=== PATIENT | female | born 1960 | race Caucasian/White ===

== ENCOUNTER → 2021-03-20 14:30 | Outpatient (BNVA) | payer OTHER, SELFPAY | PROVIDERS: Visit Provider Family Medicine Adult Medicine | DX: N39.0 Urinary tract infection, site not specified (principal) | CPT/HCPCS: 81000 ==

== ENCOUNTER → 2021-05-04 15:03 | Outpatient (BNVA) | payer OTHER, SELFPAY | PROVIDERS: Referring Provider Family Medicine Adult Medicine; Visit Provider Specialist | DX: M25.562 Pain in left knee (principal); S86.912A Strain of unspecified muscle(s) and tendon(s) at lower leg level, left leg, initial encounter; X58.XXXA Exposure to other specified factors, initial encounter; Z91.81 History of falling | CPT/HCPCS: 73560; 73565 ==

== ENCOUNTER 2021-08-26 13:37 | Outpatient (CLI) | payer OTHER, SELFPAY ==
--- NOTE | 2021-08-26 13:45 | MR_ITS ---
WS: [id number] MRI LEFT KNEE NONCONTRAST TECHNIQUE: Axial PD, coronal PD fat sat, coronal PD, sagittal PD, and sagittal PD fat-sat images obta ined. CLINICAL INFORMATION: PAIN/STRAIN OF UNSPECIFIED MUSCLES TENDONS COMPARISON: Radiograph May 04, 2021 FINDINGS: Distal quadriceps and patella tendons are intact. Moderate chondromalacia patella. Small amount of pr epatellar and infrapatellar soft tissue edema. Tiny joint effusion. Normal ACL and PCL. Chronic thinn ing of the medial and lateral meniscus. Chronic intrasubstance T2 signal abnormality involving the an terior horn lateral meniscus. No acute appearing meniscal tears. Grade III chondromalacia involving the medial joint compartment. No significant subchondral edema. Medial and lateral patellar retinaculum are intact. Normal popliteal fossa. Normal medial and lateral collateral ligaments. Small intra-articular osseous loose body along the inferior pole of the patella corresponding to the radiograph findings measuring 10 x 3.5 mm. This is located along the inferior margin the patella with in the patellofemoral joint. MR/MR knee LT wo con* [id number] IMPRESSION: 1. Normal ACL and PCL. 2. No acute appearing meniscal tears. Chronic intrasubstance signal abnormalit y involving the anterior horn lateral meniscus. 3. Grade III chondromalacia in the medial and lateral joint compartments worse involving the medial joint compartment. 4. Moderate chondromalacia patella. No subchondral edema. 5. Small intra-articular osseous loose body along the inferior pole of the pat mago corresponding to the radiograph findings measuring 10 x 3.5 mm. Outbridge grading:
== END 2021-08-26 13:38 | disposition home or self-care (01) ==
LOC: RAD 13:39
PROVIDERS: PCP Family Medicine Adult Medicine; Visit Provider Specialist
DX: M79.18 Myalgia, other site (principal); M22.42 Chondromalacia patellae, left knee
CPT/HCPCS: 73721

== ENCOUNTER 2021-12-04 05:38 | Day surgery (SDC) | payer OTHER, SELFPAY ==
[2021-12-03 12:31] VITALS: BMI 28.3
[2021-12-04] VITALS (15 sets, daily range): BP systolic 110–126; BP diastolic 68–82; PULSE 76–91; RESP 13–21; TEMP 36.3–36.9; O2SAT 97–100
[2021-12-04] MEDS: CELEcoxib 200 mg Capsule 400 MG PO (06:35)
[2021-12-04] MEDS: sodium chloride 0.9% 1,000 ML 30 ML IV (06:36)
[2021-12-04] MEDS: acetaminophen 1,000 MG/100 ML PIGGYBACK 400 MG IV (06:36)
--- NOTE | 2021-12-04 06:41 | ANES.PREANE2 ---
Pre-Anesthetic Assessment Height/Weight: Height 1.6 m Weight 72.575 kg Temp Pulse Resp BP Pulse Ox O2 Del Method 98.5 F 90 18 126/74 99 12/04/21 06:09 12/04/21 06:09 12/04/21 06:09 12/04/21 06:09 12/04/21 06:09 12/04/21 06:12 Preop Diagnosis: Loose body left knee, DJD Operation Date: 12/04/21 07:00 Proposed Procedures p LEFT KNEE SCOPE WITH DEBRIDEMENT 35355,M25.562(Left) - Katarzyna Chaidez MD Familial anesthetic complications: PONV Was Beta Kimberley taken within 24 hours: N/A Was Clonidine taken within 24 hours: N/A Last intake: Intake Last Liquid Date 12/03/21 Last Liquid Time 20:00 Last Solid Date 12/03/21 Last Solid Time 20:00 Social No alcohol and No tobacco Exam alert, oriented x 3, clear to auscultation bilaterally and regular rate & rhythm Airway Mallampati: Class II Dentition: full Pulmonary None reported CV/HEM None reported None reported Hepatic None reported GI Gastroesophageal Reflux Disease Metabolic None reported Musc/skel None reported Neuropsych None reported Anesthetic Plan ASA status: 2 Anesthesia: General Risk of > 500 ml blood loss (7ml/kg in children): No Medications/Allergies Home Medications Medication Instructions Recorded Confirmed Last Taken Type magnesium carbonate 500 mg PO DAILY 04/08/21 12/04/21 12/03/21 History omeprazole 20 mg delayed 20 mg PO DAILY 12/03/21 12/03/21 Unknown History release,disintegrating tablet potassium gluconate 550 mg (90 mg) 550 mg PO DAILY 12/03/21 12/04/21 12/03/21 History tablet Allergies Allergy/AdvReac Type Severity Reaction Status Date / Time No Known Allergies Allergy Verified 12/02/21 08:40 Current Medications Generic Name Dose Route Start Last Admin Trade Name Freq PRN Reason Stop Dose Admin Sodium Chloride 1,000 mls @ 30 mls/hr 12/04/21 06:00 12/04/21 06:36 Sodium Chloride 0.9% IV 12/05/21 05:59 30 mls/hr .Q24H JEANETTE Administration PFSH Anesthesia Medical History Actinic keratosis of multiple sites of head and neck Chronic GERD Encounter for wellness examination FHx: colon cancer Left knee pain Seborrheic keratoses UTI (urinary tract infection) Surgical History Hx of appendectomy Hx of cholecystectomy Hx of knee surgery Hx of shoulder surgery Family History Mother Cancer Social History Smoking and tobacco status: never smoked Alcohol intake: never Marital status: Number of children: 2 Number of grandchildren: 1 Current occupational status: employed Data Anesthesia Cardiac Studies: No Data to Display
[2021-12-04] MEDS: scopolamine 1.5 Patch 1 PATCH TRANSDERMA (06:43)
[2021-12-04] MEDS: ceFAZolin 2,000 MG in sodium chloride 0.9% (plus) 50 ML 100 MG IV (07:04)
--- NOTE | 2021-12-04 07:08 | W.PM.OPSUD ---
Surgery/Procedure H&P Update DATE OF PROCEDURE: December 04, 2021 DATE H&P PERFORMED: 12/02/21 H&P UPDATE INFORMATION: I have reviewed H&P completed within last 30 days, I have examined patient prior to procedure, No changes to prior documentation and H&P is in [facility] EMR on date indicated PREOP DIAGNOSIS: Loose body left knee, DJD PLANNED PROCEDURE: Operation Date: 12/04/21 07:00 Proposed Procedures p LEFT KNEE SCOPE WITH DEBRIDEMENT [id number],M25.562(Left) - Katarzyna Chaidez MD Related Problem List Diagnoses (1) Loose body in knee, left knee: (2) Primary osteoarthritis of left knee:
[2021-12-04] MEDS: morphine 4 mg/mL SDV 1 mL 8 MG XX (07:51)
--- NOTE | 2021-12-04 09:13 | PM.OP ---
Operative Report Date of procedure: December 04, 2021 Pre-op diagnosis: Left knee loose body and medial meniscal tear with associated degenerative osteoarthritis Post-op diagnosis: Left knee loose body and medial and lateral meniscal tears with associated degenerative osteoarthritis Post-op findings: Loose body, degenerative changes of both the medial and lateral meniscus, significant chondromalacia of the medial femoral condyle and trochlear groove. Procedure done: Left arthroscopic knee surgery with partial medial and lateral meniscectomies, removal of loose body, chondroplasty is medial femoral condyle and trochlear groove. Specimens removed/disposition: Loose body and arthroscopic shavings, disposed of Pathology: none sent Surgeon: Katarzyna Chaidez Freight Elevator Erector: [facility] operating room technicians Anesthesia: General (Per LMA, ASA 2) Estimated blood loss (mL): 5 Tourniquet time (min): 48 (At 250 mmHg) Tourniquet was elevated, it was then released and we elevated partially through the case for a total of 48 minutes. IV fluids (mL): 800 Urine output (mL): 0 (No Irwin) Complications: None Condition: stable Disposition: PACU (Then return to same-day surgery for discharge to home) Brief History: Samina Montero is an established 61 year old female patient who is here for left knee arthroscopy. Patient states she continues to have issues with her knee; however, there are no new symptoms at this time.? Patient's MRI demonstrated osteoarthritis, but also a loose body.? Her symptoms for which she is having knee arthroscopy are primarily related to the loose body. Consents have been obtained and questions have been answered. Procedure: Patient was brought to the operating theater and after undergoing adequate general anesthesia per LMA, ASA 2, the patient's left lower extremity was prepped and draped in usual fashion utilizing DuraPrep. A tourniquet was placed high on the leg prior to prepping and draping. The tourniquet was elevated prior to commencement of the surgical procedure to 250 mmHg. Total tourniquet time was 48 minutes, but this time was divided with 19 minutes initially, the tourniquet was then released and we elevated partially through the case for 29 minutes resulting in a total of 48 minutes. Elevation followed prepping and exsanguination. Prior to commencement of the surgical procedure, a surgical pause was performed. At the time of the surgical pause, we identified the site and side of surgery. We also confirmed the patient's identity and appropriate and timely administration of preoperative antibiotics, Ancef 2 g. Preoperative surgical markings were also visualized at this time. Standard arthroscopic portals were utilized including superolateral, inferomedial, and inferolateral portals. The examination commenced in the suprapatellar pouch area where the patient was noted to have chondromalacia to a significant degree in the trochlear groove. Initially, the loose body presented in the suprapatellar pouch as well. A grasper was placed into the knee joint from the inferomedial portal, but the loose body disappeared in the process of introducing the instrument. At that point, a search for the loose body began. We isolated loose body in the lateral gutter and the grasper was then placed through the superior lateral portal and the loose body was excised. This required enlargement of the superolateral portal to allow the loose body to be removed. The trochlear groove was noted to have significant chondromalacia. The arthroscope was then passed in the medial compartment where there was noted to be degenerative tearing of the anterior horn the medial meniscus. There was also tearing posteriorly. The arthroscope was then passed across the notch area where the anterior cruciate ligament was visualized and found to be intact. The scope was passed into the lateral compartment with the knee in a [id number] position. Lateral meniscus was noted to have inner rim tearing throughout its entirety with more significant degenerative tearing along the anterior horn area. A combination of the intra-articular shaver and intra-articular heat wand was used to address the lateral meniscus. It was then palpated and found to not be displaceable into the joint. At this point, attention was redirected to the medial compartment. The scope was then returned to the medial compartment where there was noted to be significant chondromalacia of the medial femoral condyle. Also, there was degenerative tearing in the anterior and posterior horns of the meniscus. Combination of the intra-articular shaver and heat wand were utilized to address the chondromalacia performing a chondroplasty and also address the meniscal tear. Once the meniscal tear was adequately addressed, the meniscus was palpated and found to be not displaceable into the knee joint. The arthroscope was then returned to the patellofemoral joint where a chondroplasty was performed of the trochlear groove. This chondroplasty involved use of the intra-articular shaver as well as the heat wand. Once the patellofemoral area had been addressed, the scope was passed back through the knee compartments to evaluate for other abnormalities. Finding none, attention was directed to closure. The knee was copiously irrigated and suctioned dry. Following this, each portal was closed with a simple suture followed by Dermabond and OpSite. Additionally, the knee was injected with 20 mL of half percent ropivacaine and 8 mg of morphine. Additional 10 mL of ropivacaine was placed about the portals. Sterile dressing was placed consisting of the sterile soft roll followed by the Addison wrap. Patient was returned to Recovery Room in satisfactory condition where she will be discharged home to follow-up in the office as scheduled. There were no complications and no specimens. Related Problem List Diagnoses (1) Loose body in knee, left knee: (2) Acute medial meniscus tear of left knee: (3) Acute lateral meniscus tear of left knee: (4) Primary osteoarthritis of left knee:
--- NOTE | 2021-12-04 10:05 | ECG_ITS ---
[facility] Test Date: 2021-12-04 Pat Name: Samina Montero Department: Room: Gender: Female Veterinarian Assistant: : 1960 Requested By: Anne Quiroz Order Number: [id number] Vamshi MD: Brittany Lind M.D. Measurements Intervals Kipling Rate: 76 P: 51 MA: 173 QRS: 47 QRSD: 108 T: 31 QT: 414 QTc: 466 Interpretive Statements SINUS RHYTHM PROBABLE INFERIOR MYOCARDIAL INFARCTION , PROBABLY OLD [35 ms Q WAVE IN II/aVF] No previous ECG available for comparison Electronically Signed On 12-04-2021 16:23:30 CDT by Brittany Lind M.D. [id number]
[2021-12-04] MEDS: fentaNYL 50 mcg/mL INJ 2mL IVP (10:53)
[2021-12-04] MEDS: aspirin 81 mg Chew Tablet 162 MG PO (10:53)
[2021-12-04] MEDS: nitroglycerin 1 gm/inch oint Pkt 0.5 INCH TOPICAL (10:56)
[2021-12-04 11:12] LABS: Basophils % 0.3 %; Eosinophils % 0.1 %; Hematocrit 39.7 % (37.0-47.0); Hemoglobin 12.6 g/dL (11.5-15.3); Lymphocytes # 1.6 10^3/uL (0.8-4.8); Lymphocytes % 14.1 %; Mean Corpuscular HGB Conc 31.7 g/dL (30.0-36.0); Mean Corpuscular Hemoglobin 30.1 pg (28.0-34.0); Mean Corpuscular Volume 94.7 fl (81-99); Mean Platelet Volume 9.6 fL (7.4-10.4); Monocytes # 0.3 10^3/uL (0.2-0.9); Monocytes % 2.4 %; Neutrophils # 9.19 10^3/uL (1.8-7.7); Neutrophils % 82.2 %; Nucleated Red Blood Cells % 0 %; Platelet Count 308 10^3/cmm (130-400); Red Blood Count 4.19 10^6/uL (4.1-5.3); Red Cell Distribution Width 12.4 % (12.1-15.1); White Blood Count 11.2 10^3/uL (4.0-10.0)
--- NOTE | 2021-12-04 11:12 | PC.NURSE ---
approximately 10 am pt stated she was having a burning pain in her chest. Nurse spoke with Dr Estrella who ordered an ekg. ekg obtained and Dr Estrella contacted dr Davalos who advised that he would come see patient alyse but was in a procedure at time of call. Dr Davalos ordered troponin, cbc, bmp, oxygen, nitropaste and Dr Estrella added one 162 mg chewable aspirin. orderers entered and administered with patient on vital signs monitor
[2021-12-04 11:20] LABS: Troponin T (5th) Once 6 ng/L (0-10)
[2021-12-04 11:22] LABS: Blood Urea Nitrogen 14 mg/dL (8-23); Calcium 8.3 mg/dL (8.5-10.5); Carbon Dioxide 24 mmol/L (22-29); Chloride 104 mmol/L (98-107); Glomerular Filtration Rate 63.7 mL/min (90-130); Glucose 163 mg/dL (65-115); Osmolality Calculated 290 mOsm/kg (285-295); Sodium 138 mmol/L (136-145)
--- NOTE | 2021-12-04 13:30 | ANE.PACU2 ---
Inpatient post-anesthesia follow up: Airway intact: Yes Vital signs: Temperature 97.4 F Pulse Rate 81 Respiratory Rate 16 Blood Pressure 114/68 Pulse Oximetry 100 Oxygen Delivery Me thod Nasal Cannula Oxygen Flow Rate 2 Fraction of Inspir ed Oxygen Hydration adequate: Yes Nausea and vomiting: No Pain level: 2 Mental status: Baseline Additional Comments: patient complaining of chest pain, EKG and troponins negative, but active chest pain continuing. Spoke to Dr. Davalos who saw patient at bedside. By this point, patient's chest pain had subsided and she stated it was similar to GERD pain. patient discharged home with instructions to return to ER if shortness of breath or worsening chest pain.
--- NOTE | 2021-12-04 14:15 | P.CONIM_ITS ---
Providers/Reason For Consult Consulting Physician/Specialty*: DEVI Davalos MD/cardiology Reason for Consult*: Patient status post arthroscopic knee surgery, complaining of chest pain Requesting Physician: Dr. Quiroz Attending Physician: Katarzyna Chaidez MD Primary Care Provider: Romeo Darby MD History of Present Illness History of Present Illness Samina Montero is a 61 year old female Who underwent arthroscopic knee surgery today by Dr. Chaidez. She had Left arthroscopic knee surgery with partial medial and lateral meniscectomies, removal of loose body, chondroplasty is medial femoral condyle and trochlear groove. Postoperatively, she started complaining of burning type of pain in the lower substernal, epigastric region. Cardiology consult is requested for further cardiac evaluation recommendations. apparently has been doing okay, up until her surgery this morning. She has no previous history for any coronary disease, myocardial infarction or congestive heart failure. She has no history for diabetes, hypertension or dyslipidemia. She has a history of GERD. In May of this year, she had an episode of similar symptoms while being in the ICU with her . She responded to TUMS at that time. She takes omeprazole at home every day. This morning she would not take it because of the preop status. Intensity of the pain was moderate. She had no associated shortness of breath, nausea vomiting. No sweating. No other specific complaints. She was given TUMS and sublingual nitro. Her pain is almost gone at this point. She had an EKG relative which revealed normal sinus rhythm with a normal ST Ts. Her initial set of cardiac enzymes are negative. According the patient, her symptoms are similar to what she had in the past with no significant change. She has no family history for any significant atherosclerotic heart disease. Review of Systems Narrative: CONSTITUTIONAL: No fever or chills. EYES: No blurring of vision or other visual disturbances lately. ENT: No hoarseness of voice, auditory disturbances or sore throat. CARDIOVASCULAR: As mentioned above. RESPIRATORY: No significant cough. GASTROINTESTINAL: History of GERD as mentioned above GENITOURINARY: No dysuria or hematuria. INTEGUMENTARY: No skin rashes or history of skin cancer. NEURO: No transient ischemic attacks or amaurosis. PSYCHIATRIC: No history of psychosis or major depression. HEMATOLOGIC: No bleeding disorders or significant anemia. ENDOCRINE: No history of polyuria or polydipsia. MUSCULOSKELETAL: Knee pain as mentioned above ALLERGY/IMMUNOLOGY: As mentioned above. Medications/Allergies Home Medications Medication Instructions Recorded Confirmed Last Taken Type magnesium carbonate 500 mg PO DAILY 04/08/21 12/04/21 12/03/21 History omeprazole 20 mg delayed 20 mg PO DAILY 12/03/21 12/03/21 Unknown History release,disintegrating tablet potassium gluconate 550 mg (90 mg) 550 mg PO DAILY 12/03/21 12/04/21 12/03/21 History tablet hydrocodone 5 mg-acetaminophen 325 1 tab PO Q4H PRN pain 7 days #30 12/04/21 Unknown Rx mg tablet tabs Allergies Allergy/AdvReac Type Severity Reaction Status Date / Time No Known Allergies Allergy Verified 12/02/21 08:40 Current Medications Generic Name Dose Route Start Last Admin Trade Name Freq PRN Reason Stop Dose Admin Fentanyl 50 mcg 12/04/21 08:43 12/04/21 10:53 Fentanyl 50 Mcg/Ml Inj 2ml IVP 12/05/21 08:43 50 mcg Q5M PRN Administration Pain level 6-10 PACU Phase I Sodium Chloride 1,000 mls @ 30 mls/hr 12/04/21 06:00 12/04/21 06:36 Sodium Chloride 0.9% IV 12/05/21 05:59 30 mls/hr .Q24H JEANETTE Administration PFSH Acute PFSH: Medical History Actinic keratosis of multiple sites of head and neck Chronic GERD Encounter for wellness examination FHx: colon cancer Left knee pain Seborrheic keratoses UTI (urinary tract infection) Surgical History Hx of appendectomy Hx of cholecystectomy Hx of knee surgery Hx of shoulder surgery Family History Mother Cancer Social History Smoking and tobacco status: never smoked Alcohol intake: never Marital status: Number of children: 2 Number of grandchildren: 1 Current occupational status: employed Vitals/I&O/Wt Last Vital Signs Temp 97.4 F L 12/04/21 10:45 Pulse 81 12/04/21 11:33 Resp 16 12/04/21 11:33 BP 114/68 12/04/21 11:33 Pulse Ox 100 12/04/21 11:33 O2 Del Method 12/04/21 11:33 O2 Flow Rate 2 12/04/21 11:33 12/03/21 12/04/21 12/04/21 22:59 06:59 14:59 Intake Total 960 / 960 Output Total 5 / Balance 955 / 955 Weight last 48 hrs Weight 160 lb Physical Exam Narrative: GENERAL: The patient is alert and oriented times three. Not in any acute distress. HEENT: No significant pallor, icterus or lymphadenopathy.Oral cavity: There are no mucous membrane lesions. NECK: Trachea appears to be central. No masses noted. No JVD or thyromegaly appreciated. RESPIRATORY: Chest is symmetrical. No intercostals muscle retraction or any accessory muscle activation. There is no chest wall tenderness. Breath sounds are heard bilaterally. No rales or rhonchi heard. No evidence of any consolidation. BREASTS: Deferred. HEART: The heart sounds are normal. No S3 or S4. No significant murmurs. No pericardial rub ABDOMEN: No vessel pulsations or distention. No tenderness. No organomegaly appreciated. Bowel sounds are normally heard. : Deferred. RECTAL: Deferred. LYMPHATIC: No lymphadenopathy noted in the neck. EXTREMITIES: No edema or cyanosis. No clubbing. MUSCULOSKELETAL: No acute joint deformities or swelling SKIN: There are no significant rashes or ecchymosis NEUROPSYCHIATRIC: The patient is alert and oriented x3. Appears to be in a good mood. No tremors or rigidity noted. Data : 12/04/21 10:55 12/04/21 10:55 Other Labs: Laboratory Last Values WBC 11.2 10^3/uL (4.0-10.0) H 12/04/21 10:55 RBC 4.19 10^6/uL (4.1-5.3) 12/04/21 10:55 Hgb 12.6 g/dL (11.5-15.3) 12/04/21 10:55 Hct 39.7 % (37.0-47.0) 12/04/21 10:55 MCV 94.7 fl (81-99) 12/04/21 10:55 MCH 30.1 pg (28.0-34.0) 12/04/21 10:55 MCHC 31.7 g/dL (30.0-36.0) 12/04/21 10:55 RDW 12.4 % (12.1-15.1) 12/04/21 10:55 Plt Count 308 10^3/cmm (130-400) 12/04/21 10:55 MPV 9.6 fL (7.4-10.4) 12/04/21 10:55 Neut % (Auto) 82.2 % 12/04/21 10:55 Lymph % (Auto) 14.1 % 12/04/21 10:55 Sunflower % (Auto) 2.4 % 12/04/21 10:55 Eos % (Auto) 0.1 % 12/04/21 10:55 Baso % (Auto) 0.3 % 12/04/21 10:55 Neut # (Auto) 9.19 10^3/uL (1.8-7.7) H 12/04/21 10:55 Lymph # (Auto) 1.6 10^3/uL (0.8-4.8) 12/04/21 10:55 Sunflower # (Auto) 0.3 10^3/uL (0.2-0.9) 12/04/21 10:55 Eos # (Auto) 0.0 10^3/uL (0.0-0.8) 12/04/21 10:55 Baso # (Auto) 0.0 10^3/uL (0.0-0.1) 12/04/21 10:55 Nucleated RBC % (auto) 0 % 12/04/21 10:55 Nucleated RBCs # 0.0 /100WBC 12/04/21 10:55 Sodium 138 mmol/L (136-145) 12/04/21 10:55 Potassium 4.0 mmol/L (3.5-5.1) 12/04/21 10:55 Chloride 104 mmol/L (98-107) 12/04/21 10:55 Carbon Dioxide 24 mmol/L (22-29) 12/04/21 10:55 Anion Gap 14.0 (5-19) 12/04/21 10:55 BUN 14 mg/dL (8-23) 12/04/21 10:55 Creatinine 0.9 mg/dL (0.5-0.9) 12/04/21 10:55 GFR Calculation 63.7 mL/min (90-130) L 12/04/21 10:55 Glucose 163 mg/dL (65-115) H 12/04/21 10:55 Calculated Osmolality 290 mOsm/kg (285-295) 12/04/21 10:55 Calcium 8.3 mg/dL (8.5-10.5) L 12/04/21 10:55 Troponin T Gen 5 ng/L 6 ng/L (0-10) 12/04/21 10:55 EKG 1: My Interpretation: Normal sinus rhythm with a normal ST Ts. No acute ST-T changes A&P Assessment and plan (1) Chest pain: Most likely her pain is related to GERD. She seems to be responding to Tums. Her symptoms are similar to what she had in the past. She has no ischemic EKG changes. No evidence of myocardial injury. At this point, it may be appropr iate to hold off on any further investigations. If she has recurrence of the symptoms, we may consider doing further work-up. If she continues to remain stable, may be discharged home. Status: Acute (2) Left knee pain: Patient is status post arthroscopic knee surgery. Had a partial lateral and medial meniscectomy. Status: Acute (3) Chronic GERD: May continue on the current medications. Status: Acute Plan You the patient continues to remain stable, may not require any further investigations. Discussed the current status with the patient and her in detail which is understood well. If she has recurrent episodes of pains, she may benefit from a stress test to rule out any underlying coronary ischemia Discussed with Dr. Quiroz, my recommendations. Consult Attestations Medical Necessity Statement: Possible discharge home today Coding Level of Care Code Acute Child Support Specialist for Chg Fwd History Expanded Problem Focused Exam Expanded Problem Focused Medical Decision Making Moderate Complexity Diagnoses Chest pain R07.9 Left knee pain M25.562 Chronic GERD K21.9
--- NOTE | 2021-12-04 14:37 | PC.NURSE ---
at approximately [address] Davalos met with patient after reviewing labs and records advised patient that it was appropriate to be discharged
== END 2021-12-04 13:30 | disposition home or self-care (01) ==
PROVIDERS: Anesthesiology; PCP Family Medicine Adult Medicine; Visit Provider Specialist
PROC: (CPT 29870; principal; 2021-12-04 07:00)
DX: M23.42 Loose body in knee, left knee (principal); S83.242A Other tear of medial meniscus, current injury, left knee, initial encounter; S83.282A Other tear of lateral meniscus, current injury, left knee, initial encounter; X58.XXXA Exposure to other specified factors, initial encounter; M17.12 Unilateral primary osteoarthritis, left knee; K21.9 Gastro-esophageal reflux disease without esophagitis; Z80.0 Family history of malignant neoplasm of digestive organs
CPT/HCPCS: 29880; 80048; 84484; 85025; 93005; J1100; J1885; J2270; J2405; J2704; J2795; J3010; J7030

== ENCOUNTER 2021-12-18 08:07 | Outpatient (CLI) | payer OTHER, SELFPAY ==
--- NOTE | 2021-12-18 08:12 | MM_ITS ---
WS: [id number] BILATERAL SCREENING DIGITAL TOMOSYNTHESIS MAMMOGRAM WITH CAD HISTORY: SCREENING COMPARISON: 08/09/2018, 07/28/2018 and 08/24/2016 Bilateral CC and MLO views with tomosynthesis and synthetic mammography submitted. Computer aided det ection analyzed. Breast composition: There are scattered areas of fibroglandular density. No suspicious masses, microc alcifications or architectural distortion. Long-term stability a 7 mm nodule in the anterior LEFT solo ast. Benign calcifications in each breast. MM/[place] [id number] IMPRESSION: BI-RADS: 2-Benign FOLLOW UP: 1 Year Follow-up
== END 2021-12-18 08:08 | disposition home or self-care (01) ==
LOC: RAD 08:07
PROVIDERS: PCP Family Medicine Adult Medicine; Visit Provider Family Medicine Adult Medicine
DX: Z12.31 Encounter for screening mammogram for malignant neoplasm of breast (principal)
CPT/HCPCS: 77063; 77067

== ENCOUNTER → 2023-02-22 09:19 | Outpatient (BNVA) | payer SELFPAY | PROVIDERS: PCP Family Medicine Adult Medicine; Visit Provider Dermatology | DX: Z01.89 Encounter for other specified special examinations (principal) ==

== ENCOUNTER 2023-11-22 07:35 | Outpatient (CLI) | payer SELFPAY ==
[2023-11-22 07:59] LABS: HF Add Manual Diff No
[2023-11-22 08:42] LABS: 25 Hydroxy Vitamin D 29 ng/mL (30-100); Alanine Aminotransferase 27 U/L (0-33); Albumin Level 4.3 g/dL (3.5-5.2); Alkaline Phosphatase 91 U/L (35-105); Aspartate Amino Transferase 23 U/L (0-32); Blood Urea Nitrogen 13 mg/dL (8-23); Carbon Dioxide 27 mmol/L (22-29); Chloride 106 mmol/L (98-107); Chol HDL Ratio 5.77 mg/dL (0.0-4.40); Cholesterol 277 mg/dL (0-200); Globulin 2.6 g/dL (1.3-4.6); Glomerular Filtration Rate 63.2 mL/min (90-130); Glucose 113 mg/dL (65-115); HDL Cholesterol 48 mg/dL (60-100); LDL Cholesterol Calculated 191 mg/dL (50-129); LDL HDL Ratio 3.98 RATIO (0.00-3.22); Osmolality Calculated 295 mOsm/kg (285-295); Sodium 142 mmol/L (136-145); Thyroid Stimulating Hormone 2.09 uIU/mL (0.27-4.20); Total Bilirubin 0.3 mg/dL (0.15-1.2); Total Protein 6.9 g/dL (6.6-8.7); Triglycerides 192 mg/dL (0-150)
[2023-11-22 08:48] LABS: Estmated Average Glucose 120; Hemoglobin A1C 5.8 % (4.0-6.0)
[2023-11-22 10:09] LABS: Basophils % 0.3 %; Eosinophils # 0.1 10^3/uL (0.0-0.8); Eosinophils % 1.5 %; Hematocrit 42.2 % (36-47); Lymphocytes # 2.5 10^3/uL (0.8-4.8); Mean Corpuscular HGB Conc 32.7 g/dL (30-55); Mean Corpuscular Hemoglobin 30.1 pg (27-33); Mean Corpuscular Volume 91.9 fl (85-98); Mean Platelet Volume 10.1 fL (7.4-10.4); Monocytes # 0.6 10^3/uL (0.2-0.9); Monocytes % 10.6 %; Neutrophils # 2.69 10^3/uL (1.8-7.7); Neutrophils % 45.3 %; Nucleated Red Blood Cells % 0 %; Platelet Count 324 10^3/cmm (157-399); Red Blood Count 4.59 10^6/uL (3.85-5.65); Red Cell Distribution Width 13.2 % (12.1-15.1); White Blood Count 5.95 10^3/uL (3.29-11.43)
== END 2023-11-22 07:36 | disposition home or self-care (01) ==
LOC: LAB 07:39
PROVIDERS: PCP Family Medicine Adult Medicine; Visit Provider Dermatology
DX: Z01.89 Encounter for other specified special examinations (principal)
CPT/HCPCS: 36415

== ENCOUNTER → 2025-01-15 09:26 | Outpatient (BNVA) | payer BC, MEDICARE, SELFPAY | PROVIDERS: PCP Family Medicine; Visit Provider Family Medicine | DX: E78.00 Pure hypercholesterolemia, unspecified (principal); K21.9 Gastro-esophageal reflux disease without esophagitis; Z11.59 Encounter for screening for other viral diseases; Z11.4 Encounter for screening for human immunodeficiency virus [HIV] | CPT/HCPCS: 80053; 80061; 82607; 84439; 84443; 85025; 86803; 87806 ==

== ENCOUNTER 2025-01-18 10:47 | Outpatient (CLI) | payer MEDICARE, BC, SELFPAY ==
--- NOTE | 2025-01-18 11:00 | MM_ITS ---
WS: [id number] BILATERAL 3D TOMOSYNTHESIS DIGITAL SCREENING MAMMOGRAPHY WITH CAD CLINICAL INFORMATION: screening HISTORY: Screening mammogram. History of breast reduction COMPARISON: 2021 TECHNIQUE: Bilateral CC and MLO views. FINDINGS: Scattered fibroglandular densities bilaterally. No suspicious focal mass, asymmetry, calcifications, or architectural distortion. No evidence of malignancy. Incidental punctate calcifications. Stable partially obscured nodules LEFT breast. MM/MM scr tomosynthesis [id number] IMPRESSION: DENSITY: There are scattered areas of fibroglandular density. BI-RADS: 2 - Benign. FOLLOW UP: 1 Year Follow-up Recommend return to annual screening mammography.
== END 2025-01-18 10:48 | disposition home or self-care (01) ==
LOC: RAD 10:47
PROVIDERS: PCP Family Medicine; Visit Provider Family Medicine
DX: Z12.31 Encounter for screening mammogram for malignant neoplasm of breast (principal); R92.323 Mammographic fibroglandular density, bilateral breasts; N63.20 Unspecified lump in the left breast, unspecified quadrant
CPT/HCPCS: 77063; 77067

== ENCOUNTER → 2025-03-12 08:10 | Outpatient (BNVA) | payer MEDICARE, BC, SELFPAY | PROVIDERS: PCP Family Medicine; Visit Provider Nurse Practitioner Family | DX: L57.0 Actinic keratosis (principal); L85.8 Other specified epidermal thickening; L57.8 Other skin changes due to chronic exposure to nonionizing radiation; L81.4 Other melanin hyperpigmentation; L98.8 Other specified disorders of the skin and subcutaneous tissue; L82.1 Other seborrheic keratosis; D18.01 Hemangioma of skin and subcutaneous tissue | CPT/HCPCS: 17000; 99213 ==